=== PATIENT | female | born 1950 | race Caucasian/White ===

== ENCOUNTER 2018-07-13 10:31 | Outpatient (CLI) | payer MEDICARE, OTHER ==
[2018-07-13 17:47] LABS: CHOL/HDL RATIO 3.7 (<4.4); CHOLESTEROL 277 mg/dL; HDL CHOLESTEROL 74 mg/dL; LDL CHOLESTEROL,CALCULATED 189 mg/dL; LDL/HDL RATIO 2.6 (<4.4); VLDL CHOLESTEROL 14 mg/dL
[2018-07-14 15:07] LABS: HEPATITIS C ANTIBODY NON-REACTIVE (NON-REACTIVE)
== END 2018-07-13 10:32 | disposition home or self-care (01) ==
LOC: LAB.F 10:31
PROVIDERS: ATTEND Physician Assistant Medical
DX: Z13.220 Encounter for screening for lipoid disorders (principal); Z13.818 Encounter for screening for other digestive system disorders
CPT/HCPCS: 36415; 80061; 83721; 86803

== ENCOUNTER 2018-07-16 13:20 | Emergency (ER) | payer MEDICARE, OTHER ==
[2018-07-16 13:31] VITALS: BP 156/104
--- NOTE | 2018-07-16 14:44 | ED Physician Documentation ---
PD HPI ANIMAL BITE - Stated complaint Stated Complaint: CAT BITE - Chief complaint Chief Complaint: Wound - History obtained from History obtained from: Patient - History of Present Illness Location of injury(ies): RLE Details of the event: Cat, Not immunized, Provoked, Animal can be observed Timing - onset: Today Timing - duration: Minutes Timing - details: Abrupt onset, Still present Improved by: Rest Worsened by: Moving, Palpating Associated symptoms: No: Weakness, Numbness, Tingling, Swelling Contributing factors: No: Immunocompromised Similar symptoms before: Has not had sx before Recently seen: Not recently seen - Additional information Additional information: 68-year-old previously well female was trying to corner a feral cat today when the cat attacked her and bit her right inner calf. She has puncture wounds consistent with multiple bites and she has no functional deficit. She is up-to-date on her immunizations. The animal can be observed. Review of Systems Constitutional: denies: Fever Ears: denies: Ear pain Nose: denies: Congestion Respiratory: denies: Cough GI: denies: Vomiting, Constipation, Diarrhea : denies: Dysuria Musculoskeletal: reports: Extremity pain Neurologic: denies: Generalized weakness, Focal weakness, Numbness PD PAST MEDICAL HISTORY - Past Medical History Past Medical History: Yes Cardiovascular: None, High cholesterol Respiratory: None Endocrine/Autoimmune: None GI: None, Colon polyps : None HEENT: None Psych: None Musculoskeletal: None Derm: None - Past Surgical History Past Surgical History: Yes General: Colonoscopy HEENT: Tonsil/Adenoidectomy - Present Medications Home Medications: Ambulatory Orders Medication Instructions Recorded Confirmed Amox/Clav 875/125 [Augmentin] 1 each PO Q12H #14 tablet 07/16/18 - Allergies Allergies/Adverse Reactions: Allergies Allergy/AdvReac Type Severity Reaction Status Date / Time No Known Drug Allergies Allergy Verified 07/16/18 13:30 - Social History Does the pt smoke?: No Smoking Status: Never smoker Does the pt drink ETOH?: No Does the pt have substance abuse?: No - Immunizations Immunizations are current?: Yes - POLST Patient has POLST: No PD ED PE NORMAL - Vitals Vital signs reviewed: Yes (hypedrtensive ) - General General: Alert and oriented X 3, No acute distress, Well developed/nourished - HEENT HEENT: Atraumatic, PERRL - Respiratory Respiratory: No respiratory distress - Derm Derm: Normal color, Warm and dry, No rash - Extremities Extremities: No deformity, No edema, Other (There are multiple puncture wounds to the right calf without signs of infection or drainage. Distal n/v is intact. ) - Neuro Neuro: Alert and oriented X 3, natural resources engineer 2-12 intact, No motor deficit, No sensory deficit, Normal speech Eye Opening: Spontaneous Motor: Obeys Commands Verbal: Oriented GCS Score: 15 - Psych Psych: Normal mood, Normal affect Results - Vitals Vitals: Vital Signs - 24 hr 07/16/18 13:25 Temperature 36.9 C Heart Rate 59 L Respiratory 18 Rate Blood Pressure 156/104 H O2 Saturation 99 Oxygen O2 Source Room air PD MEDICAL DECISION MAKING - ED course Complexity details: reviewed old records, considered differential, d/w patient ED course: cat bites to the right calf. - Sepsis Event Vital Signs: Vital Signs - 24 hr 07/16/18 13:25 Temperature 36.9 C Heart Rate 59 L Respiratory 18 Rate Blood Pressure 156/104 H O2 Saturation 99 Oxygen O2 Source Room air Departure - Departure Disposition: 01 Home, Self Care Clinical Impression: Cat bite of left lower leg Qualifiers: Encounter type: initial encounter Qualified Code(s): S81.852A - Open bite, left lower leg, initial encounter Condition: Stable Instructions: ED Bite Cat Follow-Up: Maddy Ngo PA-C [Primary Care Provider] - Prescriptions: Amox/Clav 875/125 [Augmentin] 1 each PO Q12H #14 tablet
== END 2018-07-16 15:02 | disposition home or self-care (01) ==
LOC: ED 13:20
DX: S81.852A Open bite, left lower leg, initial encounter (principal); W55.01XA Bitten by cat, initial encounter; E78.00 Pure hypercholesterolemia, unspecified
CPT/HCPCS: 99283

== ENCOUNTER 2018-07-25 10:14 | Outpatient (CLI) | payer MEDICARE, OTHER ==
--- NOTE | 2018-07-26 09:16 | DEXA Report ---
Reason: ASYMPTOMATIC MENOPAUSAL STATE Procedure Date: 07/25/2018 Accession Number: [id number] / [id number] Procedure: DEX - Dexa Spine and/or Hip CPT Code: FULL RESULT: EXAM: Dexa Spine and/or Hip DATE: 07/25/2018 10:47 AM CLINICAL HISTORY: ASYMPTOMATIC MENOPAUSAL STATE TECHNIQUE: Dual energy x-ray absorptiometry (DXA) was performed on a [employer]ision System. Regions measured are the AP Spine, femoral neck, and if needed forearm. COMPARISON: None. In accordance with the International Society for Clinical Densitometry (ISCD) guidelines, data from previous exams may be reanalyzed using current recommendations and techniques. This is done to allow a more accurate basis for comparison with the current study. FINDINGS: The data for the lumbar spine is as follows: BMD (g/cm/cm) T-SCORE Z-SCORE REGION L1 0.748 -3.2 -1.4 L2 0.816 -3.2 -1.4 L3 0.872 -2.7 -0.9 L4 0.889 -2.6 -0.8 TOTAL 0.843 -2.8 -1.0 NOTE: All evaluable vertebrae are used for classification The data for the hip is as follows: BMD (g/cm/cm) T-SCORE Z-SCORE REGION Neck 0.841 -1.4 0.4 TOTAL 0.939 -0.5 1.0 NOTE: The femoral neck or total proximal femur, whichever is lowest, is used for classification. IMPRESSION: THE WHO CLASSIFICATION BASED ON THE INTERNATIONAL REFERENCE STANDARD IS OSTEOPOROSIS. THE FRACTURE RISK IS HIGH. RECOMMENDATION: Patients with diagnosis of osteoporosis or osteopenia should have regular bone mineral density assessment. For those eligible for Medicare, routine testing is allowed once every 2 years. Testing frequency can be increased for patients who have rapidly progressing disease or for those who are receiving medical therapy to restore bone mass. COMMENT: World Health Organization (WHO) definitions for osteoporosis and osteopenia: NORMAL BMD: T-score at -1.0 or higher, fracture risk is low OSTEOPENIA BMD: T-score between -1.0 and -2.5, fracture risk is increased. OSTEOPOROSIS BMD: T-score at -2.5 or lower, fracture risk is high. National Osteoporosis Foundation recommends: 1. Obtain adequate dietary calcium (at least 1200 mg per day) and vitamin D (400-800 international units per day). 2. Participate, as appropriate, in regular weightbearing and muscle-strengthening exercise. 3. Avoid tobacco use and reduce alcohol and caffeine intake. 4. For more detailed information see the website at www.NOF.org.
== END 2018-07-25 10:15 | disposition home or self-care (01) ==
LOC: DI 10:14
PROVIDERS: ATTEND Physician Assistant Medical
DX: M81.0 Age-related osteoporosis without current pathological fracture (principal)
CPT/HCPCS: 77080

== ENCOUNTER 2019-07-25 13:23 | Outpatient (CLI) | payer MEDICARE, OTHER ==
--- NOTE | 2019-07-27 04:37 | XRAY Report ---
Reason: TOE PAIN LT M79.675 Procedure Date: 07/25/2019 Accession Number: [id number] / [id number] Procedure: XRS - Toe(s) LT CPT Code: FULL RESULT: EXAM: LEFT SECOND AND THIRD TOE RADIOGRAPHY EXAM DATE: 07/25/2019 01:40 PM. CLINICAL HISTORY: TOE PAIN LT M79. 675. COMPARISON: 05/21/2015 1:35 PM. TECHNIQUE: 3 views. FINDINGS: Bones: No acute fracture seen. Joints: No dislocation seen. Degenerative changes in the interphalangeal joints. Soft Tissues: Soft tissue swelling. IMPRESSION: 1. No acute fracture or dislocation seen. 2. Degenerative changes and soft tissue swelling. RADIA
== END 2019-07-25 13:24 | disposition home or self-care (01) ==
LOC: DI.S 13:23
PROVIDERS: ATTEND Family Medicine
DX: M19.072 Primary osteoarthritis, left ankle and foot (principal); R22.42 Localized swelling, mass and lump, left lower limb
CPT/HCPCS: 73660

== ENCOUNTER 2020-10-15 11:23 | Outpatient (CLI) | payer MEDICARE, OTHER | END 2020-10-15 11:24 | disposition home or self-care (01) | LOC: COV 11:23 | PROVIDERS: ATTEND Family Medicine | DX: M79.10 Myalgia, unspecified site (principal); R19.7 Diarrhea, unspecified; R68.83 Chills (without fever); R07.0 Pain in throat; R53.83 Other fatigue; R43.8 Other disturbances of smell and taste; R11.2 Nausea with vomiting, unspecified; Z20.828 Contact with and (suspected) exposure to other viral communicable diseases ==

== ENCOUNTER 2020-10-16 10:56 | Emergency (ER) | payer MEDICARE, OTHER ==
--- NOTE | 2020-10-16 11:38 | ED Physician Documentation ---
PD HPI ABD PAIN - Stated complaint Stated Complaint: STOMACH PX - Chief complaint Chief Complaint: Abd Pain - History obtained from History obtained from: Patient - History of Present Illness Timing - onset: How many days ago (4) Timing - duration: Days (4) Timing - details: Abrupt onset, Still present, Constant Quality: Aching, Sharp, Pain Location: LLQ Radiation: Left flank Improved by: No: Eating, BM Worsened by: No: Eating Associated symptoms: Nausea, Constipation (mild last week, but has had good BMs the past couple days without improvement in the pain.). No: Fever, Vomiting, Diarrhea Similar symptoms before: Has not had sx before Recently seen: Not recently seen Review of Systems Constitutional: denies: Fever, Chills Nose: denies: Rhinorrhea / runny nose, Congestion Throat: denies: Sore throat Cardiac: denies: Chest pain / pressure, Palpitations Respiratory: denies: Cough GI: reports: Abdominal Pain, Nausea, Constipation. denies: Abdominal Swelling, Vomiting, Diarrhea, Hematemesis : denies: Dysuria Skin: denies: Rash Musculoskeletal: reports: Back pain. denies: Neck pain Neurologic: denies: Generalized weakness, Near syncope PD PAST MEDICAL HISTORY - Past Medical History Cardiovascular: None, High cholesterol Respiratory: None Endocrine/Autoimmune: None GI: None, Colon polyps : None HEENT: None Psych: None Musculoskeletal: None Derm: None - Past Surgical History Past Surgical History: Yes General: Colonoscopy HEENT: Tonsil/Adenoidectomy - Present Medications Home Medications: Ambulatory Orders Medication Instructions Recorded Confirmed Docusate Sodium 100Mg Capsule 100 mg PO DAILY #15 capsule 10/16/20 [Colace 100Mg Capsule] HYDROcod/ACETAM 5/325 [[place] 5/325] 1 ea PO Q6H PRN #15 tablet 10/16/20 Ondansetron Odt [Zofran] 4 mg TL Q6H PRN #10 tablet 10/16/20 - Allergies Allergies/Adverse Reactions: Allergies Allergy/AdvReac Type Severity Reaction Status Date / Time No Known Drug Allergies Allergy Verified 10/16/20 11:08 - Social History Does the pt smoke?: No Smoking Status: Never smoker Does the pt drink ETOH?: No Does the pt have substance abuse?: No - Immunizations Immunizations are current?: Yes - POLST Patient has POLST: No PD ED PE NORMAL - Vitals Vital signs reviewed: Yes - General General: Alert and oriented X 3, Well developed/nourished - HEENT HEENT: Pharynx benign - Neck Neck: Supple, no meningeal sign, No adenopathy - Cardiac Cardiac: RRR, No murmur - Respiratory Respiratory: Clear bilaterally - Abdomen Abdomen: Normal bowel sounds, Soft, Non distended, No organomegaly, Other (minimally tender locally LLQ without percussion nor rebound tenderness. Mild left CVA tender. ) - Female Female : Deferred - Rectal Rectal: Deferred - Back Back: No spinal TTP - Derm Derm: Normal color, Warm and dry, No rash - Extremities Extremities: No tenderness to palpate, Normal ROM s pain, No edema, No calf tenderness / cord - Neuro Neuro: Alert and oriented X 3, No motor deficit, Normal speech Results - Vitals Vitals: Vital Signs - 24 hr 10/16/20 10/16/20 11:04 14:15 Temperature 36.5 C Heart Rate 75 80 Respiratory 17 18 Rate Blood Pressure 181/82 H 155/83 H O2 Saturation 98 100 Oxygen O2 Source Room air - Labs Labs: Laboratory Tests 10/16/20 10/16/20 10/16/20 11:30 11:35 11:35 WBC 3.7 L RBC 5.13 Hgb 14.8 Hct 45.3 MCV 88.3 MCH 28.8 MCHC 32.7 RDW 11.9 L Plt Count 162 MPV 10.6 Neut # (Auto) 2.1 Lymph # (Auto) 1.3 L [place] # (Auto) 0.3 Eos # (Auto) 0.1 Baso # (Auto) 0.0 Absolute Nucleated RBC 0.00 Nucleated RBC % 0.0 Sodium 142 Potassium 3.8 Chloride 101 Carbon Dioxide 30 Anion Gap 11.0 BUN 19 Creatinine 0.9 Estimated GFR (MDRD) 62 L Glucose 93 Calcium 9.5 Total Bilirubin 0.8 AST 28 ALT 31 Alkaline Phosphatase 47 Total Protein 7.4 Albumin 4.6 Globulin 2.8 Albumin/Globulin Ratio 1.6 Lipase 45 Urine Color LT RED Urine Clarity CLEAR Urine pH 7.5 Ur Specific [place] 1.010 Urine Protein NEGATIVE Urine Glucose (UA) NEGATIVE Urine Ketones NEGATIVE Urine Occult Blood NEGATIVE Urine Nitrite NEGATIVE Urine Bilirubin NEGATIVE Urine Urobilinogen 0.2 (NORMAL) Ur Leukocyte Esterase NEGATIVE Urine RBC 0-5 Urine WBC 0-3 Ur Squamous Epith Cells RARE Squamous Urine Bacteria Rare Ur Microscopic Review INDICATED Urine Culture Comments NOT INDICATED - Rads (name of study) abd/pelvic CT Radiology: Prelim report reviewed (no acute process), EMP read contemporaneously (Kidney normal. I read a small 3 mm stone at distal ureter (versus small fecolith, but would correlate with her symptoms well). ), See rad report PD MEDICAL DECISION MAKING - ED course Complexity details: reviewed results, considered differential (consider colon irritation, diverticular without infection, though her symptoms seem very c/w kidney stone. Treatment would be similar with NSAIDs, pain meds, and time, with addition of stool softener for possible colitis process. ), d/w patient Departure - Departure Disposition: 01 Home, Self Care Clinical Impression: Left lower quadrant abdominal pain Condition: Stable Record reviewed to determine appropriate education?: Yes Instructions: ED Abdominal Pain Unkn Cause Prescriptions: Docusate Sodium 100Mg Capsule [Colace 100Mg Capsule] 100 mg PO DAILY #15 capsule HYDROcod/ACETAM 5/325 [[place] 5/325] 1 ea PO Q6H PRN #15 tablet PRN Reason: Pain Ondansetron Odt [Zofran] 4 mg TL Q6H PRN #10 tablet PRN Reason: Nausea / Vomiting Comments: The radiology report does not identify an obvious cause for the pain. I thought there might be a small stone in the end of the ureter almost to the bladder but was not on the radiology report. At this point consider the possibilities of most likely an irritation of the portion of intestine down in that area (could be a mild diverticulitis without infection that would not be visible on the CT scan). Or possibly could be a small stone in the ureter not picked up by the radiologist on his view of it. The treatments would be fairly similar at this point with staying well-hydrated and using a stool softener once or twice daily over the next several days to a week. Add to that anti-inflammatory such as Advil/ibuprofen 400 mg 3 times a day with food. Add ondansetron if needed for nausea and hydrocodone if needed for worse pain. Recheck if not improved well and resolved over the next 2 to 5 days. And return if worsening. Discharge Date/Time: 10/16/20 14:15
[2020-10-16 11:49] LABS: BASOPHILS % (AUTO) 0.3 %; EOSINOPHILS # (AUTO) 0.1 10^3/uL (0.0-0.7); EOSINOPHILS % (AUTO) 1.9 %; HGB - HEMOGLOBIN 14.8 g/dL (12.0-16.0); LYMPHOCYTES # (AUTO) 1.3 10^3/uL (1.5-3.5); LYMPHOCYTES % (AUTO) 34.9 %; MEAN CORPUSCULAR HEMOGLOBIN 28.8 pg (27.0-31.0); MEAN CORPUSCULAR HGB CONC 32.7 g/dL (32.0-36.0); MEAN CORPUSCULAR VOLUME 88.3 fL (81.0-99.0); MEAN PLATELET VOLUME 10.6 fL (7.9-10.8); MONOCYTES # (AUTO) 0.3 10^3/uL (0.0-1.0); MONOCYTES % (AUTO) 6.8 %; NEUTROPHILS # (AUTO) 2.1 10^3/uL (1.5-6.6); NEUTROPHILS % (AUTO) 56.1 %; PLT - PLATELET COUNT 162 10^3/uL (130-450); RED BLOOD COUNT 5.13 10^6/uL (4.20-5.40); RED CELL DISTRIBUTION WIDTH 11.9 % (12.0-15.0); WHITE BLOOD COUNT 3.7 x10^3/uL (4.8-10.8)
[2020-10-16 11:50] LABS: BILIRUBIN,URINE NEGATIVE (NEGATIVE); GLUCOSE, URINE (UA) NEGATIVE (NEGATIVE); KETONES,URINE (UA) NEGATIVE (NEGATIVE); LEUKOCYTE ESTERASE, URINE NEGATIVE (NEGATIVE); NITRITE,URINE NEGATIVE (NEGATIVE); OCCULT BLOOD,URINE NEGATIVE (NEGATIVE); PH,URINE 7.5 PH (5.0-7.5); PROTEIN,URINE NEGATIVE (NEGATIVE); UROBILINOGEN,URINE 0.2 (NORMAL) E.U./dL (NORMAL)
[2020-10-16 11:52] LABS: CLARITY,URINE CLEAR (CLEAR)
[2020-10-16 12:01] LABS: BACTERIA,URINE Rare /HPF (None Seen); RBC,URINE 0-5 /HPF (0-5); SQUAMOUS EPITHELIAL CELL,UR RARE Squamous (<= Few)
[2020-10-16] MEDS ORDERED: SODIUM CHLORIDE 0.9% 1,000 ML IV STA (12:01)
[2020-10-16] MEDS ORDERED: MORPHINE 2 MG/ML CARPUJECT IVP STA (12:01)
[2020-10-16] MEDS ORDERED: KETOROLAC 30 MG/ML VIAL IVP STA (12:01)
[2020-10-16 12:02] LABS: ALBUMIN 4.6 g/dL (3.2-5.5); ALBUMIN/GLOBULIN RATIO 1.6 (1.0-2.2); BILIRUBIN,TOTAL 0.8 mg/dL (0.2-1.0); CALCIUM 9.5 mg/dL (8.5-10.3); CREATININE 0.9 mg/dL (0.4-1.0); TOTAL PROTEIN 7.4 g/dL (6.7-8.2)
[2020-10-16] MEDS ORDERED: IOVERSOL 320 100 ML VIAL IVP ONE ×2 (12:24→12:59)
--- NOTE | 2020-10-16 12:54 | CT Report ---
PROCEDURE: Abdomen/Pelvis W INDICATIONS: LLQ abd pain for 4 days CONTRAST: IV CONTRAST: Optiray 320 ml: 100 PO CONTRAST: *NO PO CONTRAST TECHNIQUE: After the administration of IV contrast, 5 mm thick sections acquired from the diaphragms to the symp hysis. 5 mm thick coronal and sagittal reformats were acquired. For radiation dose reduction, the f ollowing was used: automated exposure control, adjustment of mA and/or kV according to patient size. COMPARISON: None. FINDINGS: Image quality: Excellent. ABDOMEN: Lung bases: Linear scarring/atelectasis in the anterior aspect of left lingular segment is seen. Bila teral posterior dependent atelectasis in lung bases also seen. Heart size is normal. Solid organs: Liver and spleen are normal in size and enhancement. Gallbladder is within normal hadley its Biliary system is non dilated. Pancreas enhances normally. No adrenal nodules. Kidneys demons trate normal size and enhancement, without hydronephrosis. Peritoneum and bowel: Bowel loops demonstrate normal wall thickness and caliber. No free fluid or a ir. Significant fecal stasis throughout the colon is seen. There is a small hiatal hernia. Colonic d iverticulosis is noted, no CT evidence of acute diverticulitis. Appendix is visualized in right abdom en and is within normal limits. Nodes and vessels: No retroperitoneal or mesenteric adenopathy by si ze criteria. Aorta and inferior vena cava are normal in size. Miscellaneous: No ventral hernias. PELVIS: Genitourinary: Bladder wall thickness is normal. Miscellaneous: No inguinal hernias or adenopathy. Bones: No suspicious bony lesions. No vertebral body compression fractures. Minimal anterolisthesi s of L4 on L5 is seen. IMPRESSION: 1. Colonic diverticulosis, no CT evidence of acute diverticulitis. Normal appendix. No bowel obstruct ion. No free fluid or free air. Moderate fecal stasis throughout the colon suggestive of constipation . 2. No obstructing renal stone or hydronephrosis. 3. Bibasilar dependent atelectasis/scarring. Reviewed by: James Kim MD on 10/16/2020 12:52 PM PST Approved by: James Kim MD on 10/16/2020 12:52 PM PST Station ID: [id number]
[2020-10-16 14:16] VITALS: BP 155/83
== END 2020-10-16 14:15 | disposition home or self-care (01) ==
LOC: ED 10:56
DX: R10.32 Left lower quadrant pain (principal); N20.1 Calculus of ureter; K57.30 Diverticulosis of large intestine without perforation or abscess without bleeding; Z86.010 Personal history of colon polyps
CPT/HCPCS: 36415; 74177; 80053; 81001; 83690; 85025; 96374; 99284; Q9967; 81003; 87086

== ENCOUNTER 2022-11-26 22:19 | Emergency (ER) | payer MEDICARE, OTHER ==
[2022-11-26 22:57] LABS: BASOPHILS % (AUTO) 0.3 %; EOSINOPHILS # (AUTO) 0.1 10^3/uL (0.0-0.7); HCT - HEMATOCRIT 39.7 % (37.0-47.0); HGB - HEMOGLOBIN 13.2 g/dL (12.0-16.0); LYMPHOCYTES # (AUTO) 1.5 10^3/uL (1.5-3.5); LYMPHOCYTES % (AUTO) 42.8 %; MEAN CORPUSCULAR HEMOGLOBIN 29.2 pg (27.0-31.0); MEAN CORPUSCULAR HGB CONC 33.2 g/dL (32.0-36.0); MEAN CORPUSCULAR VOLUME 87.8 fL (81.0-99.0); MEAN PLATELET VOLUME 11.3 fL (7.9-10.8); MONOCYTES # (AUTO) 0.3 10^3/uL (0.0-1.0); MONOCYTES % (AUTO) 9.1 %; NEUTROPHILS # (AUTO) 1.6 10^3/uL (1.5-6.6); NEUTROPHILS % (AUTO) 45.5 %; PLT - PLATELET COUNT 144 10^3/uL (130-450); RED BLOOD COUNT 4.52 10^6/uL (4.20-5.40); RED CELL DISTRIBUTION WIDTH 12.2 % (12.0-15.0); WHITE BLOOD COUNT 3.5 x10^3/uL (4.8-10.8)
[2022-11-26 23:08] LABS: ALBUMIN 4.2 g/dL (3.2-5.5); ALBUMIN/GLOBULIN RATIO 1.8 (1.0-2.2); BILIRUBIN,TOTAL 0.7 mg/dL (0.2-1.0); CALCIUM 9.5 mg/dL (8.5-10.3); CREATININE 0.9 mg/dL (0.4-1.0); POTASSIUM 4.3 mmol/L (3.5-5.0); TOTAL PROTEIN 6.6 g/dL (6.7-8.2)
--- NOTE | 2022-11-26 23:53 | XRAY Report ---
PROCEDURE: Chest 1 View X-Ray INDICATIONS: Chest pain TECHNIQUE: One view of the chest was acquired. COMPARISON: None. FINDINGS: Surgical changes and devices: None. Lungs and pleura: No pleural effusions or pneumothorax. Lungs are clear. There is hyperinflation of the lungs with flattening of the hemidiaphragms compatible with COPD. Mediastinum: Mediastinal contours appear normal. Heart size is normal. Bones and chest wall: No suspicious bony lesions. Overlying soft tissues appear unremarkable. IMPRESSION: 1. No acute cardiopulmonary disease. 2. Findings compatible with COPD. Reviewed by: Kar Leon MD on 11/27/2022 12:02 AM [facility] Approved by: Kar Leon MD on 11/27/2022 12:02 AM PST Station ID: [id number]
--- NOTE | 2022-11-27 00:12 | ED Physician Documentation ---
History of Present Illness - Stated complaint Stated Complaint: DIZZINESS, HBP, SHAKEY, WEAK - Chief complaint Chief Complaint: General - History obtained from History obtained from: Patient - Additonal information Additional information: Patient c/o high blood pressure readings with home BP cuff. Patient has been having readings at home over past 2-3 days of 170s-200s SBP. She says she was told her blood pressure was elevated by PMD approximately 1 year ago and, at that time, she was instructed to measure BP at home once per week and follow up with PMD. PD PAST MEDICAL HISTORY - Past Medical History Past Medical History: No Cardiovascular: None, High cholesterol Respiratory: None Endocrine/Autoimmune: None GI: None, Colon polyps : None HEENT: None Psych: None Musculoskeletal: None Derm: None - Past Surgical History Past Surgical History: Yes General: Colonoscopy HEENT: Tonsil/Adenoidectomy - Present Medications Home Medications: Ambulatory Orders Medication Instructions Recorded Confirmed Docusate Sodium 100Mg Capsule 100 mg PO DAILY #15 capsule 10/16/20 [Colace 100Mg Capsule] HYDROcod/ACETAM 5/325 [[place] 5/325] 1 ea PO Q6H PRN #15 tablet 10/16/20 Ondansetron Odt [Zofran] 4 mg TL Q6H PRN #10 tablet 20 lisinopriL [Lisinopril] 10 mg PO DAILY #60 tablet 11/27/22 - Allergies Allergies/Adverse Reactions: Allergies Allergy/AdvReac Type Severity Reaction Status Date / Time No Known Drug Allergies Allergy Verified 11/26/22 22:33 - Social History Does the pt smoke?: No Smoking Status: Never smoker Does the pt drink ETOH?: No Does the pt have substance abuse?: No - Immunizations Immunizations are current?: Yes - POLST Patient has POLST: No PD ED PE NORMAL - Vitals Vital signs reviewed: Yes - General General: Alert and oriented X 3, No acute distress, Well developed/nourished - Cardiac Cardiac: RRR, No murmur, No gallop, No rub - Respiratory Respiratory: No respiratory distress, Clear bilaterally Results - Vitals Vitals: Oxygen O2 Source Room air - EKG (time done) No standard instances Rate: Rate (enter#) (63) Rhythm: NSR [place]: Normal Intervals: Normal SC QRS: Normal Ischemia: Normal ST segments - Labs Labs: Laboratory Tests 11/26/22 11/26/22 11/26/22 22:49 22:49 22:49 WBC 3.5 L RBC 4.52 Hgb 13.2 Hct 39.7 MCV 87.8 MCH 29.2 MCHC 33.2 RDW 12.2 Plt Count 144 MPV 11.3 H Neut # (Auto) 1.6 Lymph # (Auto) 1.5 [place] # (Auto) 0.3 Eos # (Auto) 0.1 Baso # (Auto) 0.0 Absolute Nucleated RBC 0.00 Nucleated RBC % 0.0 Sodium 140 Potassium 4.3 Chloride 101 Carbon Dioxide 28 Anion Gap 11.0 BUN 17 Creatinine 0.9 Estimated GFR (MDRD) 61 L Glucose 101 H Calcium 9.5 Total Bilirubin 0.7 AST 27 ALT 27 Alkaline Phosphatase 44 Troponin I High Sens 8.1 Total Protein 6.6 L Albumin 4.2 Globulin 2.4 Albumin/Globulin Ratio 1.8 Lipase 45 PD Medical Decision Making - ED course Complexity details: considered differential, d/w patient ED course: patient has had high blood pressure readings at home for past few days. She says she also was told her blood pressure readings were high at a recent appointment with her jet inspector. She has had occasional palpitations and episodic lightheadedness; as this calls into question whether she is having truly asymptomatic hypertension , a cardiac-oriented workup is performed tonight and there are no concerning findings on EKG, CXR, blood tests including high sensitivity troponin. Her blood pressure readings are elevated during ED stay. Test results reviewed with patient and return precautions discussed. She is interested in starting an anti-hypertensive medication and she is given 10mg lisinopril and rx for same provided. Departure - Departure Disposition: Home, Self Care Clinical Impression: Hypertension Qualifiers: Hypertension type: unspecified Qualified Code(s): I10 - Essential (primary) hypertension Condition: Good Instructions: Lisinopril tablets, ED Hypertension New Begin Tx Prescriptions: lisinopriL [Lisinopril] 10 mg PO DAILY #60 tablet Comments: There were no concerning or diagnostic findings on the tests that were performed tonight. As we discussed, your white blood cell count is slightly below the normal range; you have indicated to me that this is not a new finding. Your kidney function tests are normal, and a cardiac enzyme (blood) test was normal, as well. There were no concerning findings on the EKG, and the chest x-ray did not have any abnormalities. Your blood pressures were indeed persistently elevated during the ER stay, and you have indicated that they have been similarly high (at times even higher than the readings in the ER) at home for the past 2 or more days. Thus, I am starting you on a medication to reduce your blood pressure; you are given the first dose of lisinopril in the emergency department, and I have electronically submitted a prescription for the lisinopril to the [facility] pharmacy in [facility]. Contact your primary care provider in the morning to see if a follow-up appointment can be arranged sooner than the appointment you have scheduled for January. Discharge Date/Time: 11/27/22 00:59
[2022-11-27] MEDS ORDERED: lisinopriL 5 MG TABLET PO STA (00:49)
[2022-11-27 01:01] VITALS: BP 180/88
== END 2022-11-27 00:59 | disposition home or self-care (01) ==
LOC: ED 22:19
DX: I10 Essential (primary) hypertension (principal)
CPT/HCPCS: 36415; 71045; 80053; 83690; 84484; 85025; 93005; 99284; A9270

== ENCOUNTER 2022-11-29 10:45 | Emergency (ER) | payer MEDICARE, OTHER ==
[2022-11-29 11:11] VITALS: BP 182/86
[2022-11-29 11:16] LABS: BASOPHILS % (AUTO) 0.3 %; HCT - HEMATOCRIT 41.6 % (37.0-47.0); HGB - HEMOGLOBIN 13.5 g/dL (12.0-16.0); LYMPHOCYTES % (AUTO) 25.8 %; MEAN CORPUSCULAR HEMOGLOBIN 28.6 pg (27.0-31.0); MEAN CORPUSCULAR HGB CONC 32.5 g/dL (32.0-36.0); MEAN CORPUSCULAR VOLUME 88.1 fL (81.0-99.0); MEAN PLATELET VOLUME 11.2 fL (7.9-10.8); MONOCYTES # (AUTO) 0.3 10^3/uL (0.0-1.0); MONOCYTES % (AUTO) 7.8 %; NEUTROPHILS # (AUTO) 2.5 10^3/uL (1.5-6.6); NEUTROPHILS % (AUTO) 65.1 %; PLT - PLATELET COUNT 134 10^3/uL (130-450); RED BLOOD COUNT 4.72 10^6/uL (4.20-5.40); WHITE BLOOD COUNT 3.9 x10^3/uL (4.8-10.8)
[2022-11-29 11:31] LABS: ALBUMIN 4.1 g/dL (3.2-5.5); ALBUMIN/GLOBULIN RATIO 1.5 (1.0-2.2); BILIRUBIN,TOTAL 0.8 mg/dL (0.2-1.0); CALCIUM 9.2 mg/dL (8.5-10.3); CREATININE 0.9 mg/dL (0.4-1.0); POTASSIUM 4.2 mmol/L (3.5-5.0); TOTAL PROTEIN 6.8 g/dL (6.7-8.2)
[2022-11-29 11:33] LABS: BILIRUBIN,URINE NEGATIVE (NEGATIVE); GLUCOSE, URINE (UA) NEGATIVE (NEGATIVE); KETONES,URINE (UA) NEGATIVE (NEGATIVE); LEUKOCYTE ESTERASE, URINE NEGATIVE (NEGATIVE); NITRITE,URINE NEGATIVE (NEGATIVE); OCCULT BLOOD,URINE NEGATIVE (NEGATIVE); PROTEIN,URINE NEGATIVE (NEGATIVE); UROBILINOGEN,URINE 0.2 (NORMAL) E.U./dL (NORMAL)
[2022-11-29 11:38] LABS: CLARITY,URINE CLEAR (CLEAR)
--- NOTE | 2022-11-29 11:47 | ED Physician Documentation ---
History of Present Illness - Stated complaint Stated Complaint: HIGH BP - Chief complaint Chief Complaint: Cardiac - Additonal information Additional information: 72-year-old female presents emergency department for evaluation of elevated bl ood pressures. Seen by my colleague for similar on 26 November. At that time work-up was negative and presumed to have primary essential hypertension for which she was started on lisinopril. She is taking this twice now but continues to feel that her blood pressures are too elevated. Up to 211 systolic at home. She does report feeling anxious sometimes lightheaded or dizzy. In no way does she describe chest pain or chest pressure. No back pain. No nausea or vomiting. Denies any shortness of air. She has never been treated for hypertension prior to this. Non-smoker and nondrinker. She is scheduled to see a primary care provider at the [facility] on the of this month. Patient is a reliable historian Review of Systems Constitutional: denies: Fever, Chills Ears: reports: Reviewed and negative Throat: reports: Reviewed and negative Cardiac: reports: Other (Lightheaded) Respiratory: reports: Reviewed and negative GI: reports: Reviewed and negative : reports: Reviewed and negative Skin: reports: Reviewed and negative Musculoskeletal: reports: Reviewed and negative Neurologic: denies: Generalized weakness, Focal weakness, Confused, Headache, Head injury, LOC PD PAST MEDICAL HISTORY - Past Medical History Past Medical History: Yes Cardiovascular: Hypertension, High cholesterol Respiratory: None Neuro: None Endocrine/Autoimmune: None GI: Colon polyps : None HEENT: None Psych: None Musculoskeletal: Osteoporosis Derm: None - Past Surgical History Past Surgical History: Yes General: Colonoscopy HEENT: Tonsil/Adenoidectomy - Present Medications Home Medications: Ambulatory Orders Medication Instructions Recorded Confirmed lisinopriL [Lisinopril] 10 mg PO DAILY #60 tablet 11/27/22 11/29/22 - Allergies Allergies/Adverse Reactions: Allergies Allergy/AdvReac Type Severity Reaction Status Date / Time No Known Drug Allergies Allergy Verified 11/29/22 10:56 - Social History Does the pt smoke?: No Smoking Status: Never smoker Does the pt drink ETOH?: No Does the pt have substance abuse?: No - Immunizations Immunizations are current?: Yes - POLST Patient has POLST: No PD ED PE NORMAL - General General: Alert and oriented X 3, No acute distress - HEENT HEENT: Atraumatic, Ears normal - Neck Neck: Supple, no meningeal sign, No adenopathy - Cardiac Cardiac: RRR, No murmur, No gallop, Strong equal pulses - Respiratory Respiratory: No respiratory distress, Clear bilaterally - Abdomen Abdomen: Normal bowel sounds, Soft, Non tender Results - Vitals Vitals: Vital Signs - 24 hr 11/29/22 11/29/22 10:50 11:11 Temperature 36.6 C Heart Rate 64 62 Respiratory 18 16 Rate Blood Pressure 198/84 H 182/86 H O2 Saturation 98 99 Oxygen O2 Source Room air - EKG (time done) 1056 Rate: Rate (enter#) (60) Rhythm: NSR [place]: Normal Intervals: Normal MO QRS: Normal Ischemia: Normal ST segments Compare to prior EKG: Old EKG unavailable Computer interpretation: Agree with computer - Labs Labs: Laboratory Tests 11/29/22 11/29/22 11/29/22 11:07 11:07 11:07 WBC 3.9 L RBC 4.72 Hgb 13.5 Hct 41.6 MCV 88.1 MCH 28.6 MCHC 32.5 RDW 12.0 Plt Count 134 MPV 11.2 H Neut # (Auto) 2.5 Lymph # (Auto) 1.0 L Brown # (Auto) 0.3 Eos # (Auto) 0.0 Baso # (Auto) 0.0 Absolute Nucleated RBC 0.00 Nucleated RBC % 0.0 Sodium 137 Potassium 4.2 Chloride 101 Carbon Dioxide 29 Anion Gap 7.0 BUN 14 Creatinine 0.9 Estimated GFR (MDRD) 61 L Glucose 92 Calcium 9.2 Total Bilirubin 0.8 AST 27 ALT 23 Alkaline Phosphatase 42 Troponin I High Sens 7.4 Total Protein 6.8 Albumin 4.1 Globulin 2.7 Albumin/Globulin Ratio 1.5 Lipase 39 Urine Color Urine Clarity Urine pH Ur Specific [place] Urine Protein Urine Glucose (UA) Urine Ketones Urine Occult Blood Urine Nitrite Urine Bilirubin Urine Urobilinogen Ur Leukocyte Esterase Ur Microscopic Review Urine Culture Comments 11/29/22 11:22 WBC RBC Hgb Hct MCV MCH MCHC RDW Plt Count MPV Neut # (Auto) Lymph # (Auto) Brown # (Auto) Eos # (Auto) Baso # (Auto) Absolute Nucleated RBC Nucleated RBC % Sodium Potassium Chloride Carbon Dioxide Anion Gap BUN Creatinine Estimated GFR (MDRD) Glucose Calcium Total Bilirubin AST ALT Alkaline Phosphatase Troponin I High Sens Total Protein Albumin Globulin Albumin/Globulin Ratio Lipase Urine Color YELLOW Urine Clarity CLEAR Urine pH 7.0 Ur Specific [place] 1.010 Urine Protein NEGATIVE Urine Glucose (UA) NEGATIVE Urine Ketones NEGATIVE Urine Occult Blood NEGATIVE Urine Nitrite NEGATIVE Urine Bilirubin NEGATIVE Urine Urobilinogen 0.2 (NORMAL) Ur Leukocyte Esterase NEGATIVE Ur Microscopic Review NOT INDICATED Urine Culture Comments NOT INDICATED - Rads (name of study) cxr Radiology: EMP read indepedently (No acute cardiopulmonary process) PD Medical Decision Making - ED course Complexity details: reviewed results, re-evaluated patient, considered differential, d/w patient, d/w family ED course: Well-appearing 72-year-old female presents emergency department for reevaluation of her blood pressures. Seen 3 nights ago for similar and started on lisinopril presumptively for essential hypertension. She states that she is anxious and somewhat lightheaded and dizzy. When she has checked her blood pressures at home they are about 211 systolic. At no point has she developed chest pain, chest pressure, back pain nausea or vomiting. Has no vision changes. She is currently scheduled to see PCP on the to have her blood pressure addressed in the long-term. Clinically on exam she appears rather well. My interpretation of the EKG is that is nonischemic. High-sensitivity troponin today is negative. Clinically the patient is not presenting with symptoms or laboratory findings consistent with ACS. She has preserved renal and liver function. No headaches nausea vomiting, vision changes or abdominal pain elicited. Clinically this is not consistent with hypertensive urgency or emergency. I discussed with the patient that long-term management of blood pressure typically takes place over the course of a few weeks to few months. I have encouraged her to check her blood pressure once in the morning before taking lisinopril and then about 2 hours after it. We also discussed the usual emergent return precautions for concerns of chest pain, pressure uncontrolled nausea vomiting headaches back pain etc. Patient does leave this emergency department feeling better though she does remain hypertensive. Departure - Departure Disposition: Home, Self Care Clinical Impression: High blood pressure Qualifiers: Hypertension type: primary hypertension Qualified Code(s): I10 - Essential (primary) hypertension Condition: Stable Record reviewed to determine appropriate education?: Yes Comments: Moriah you came to the emergency department today because you have been feeling somewhat lightheaded and dizzy. You been checking your blood pressures at home and they have vacillated between 160 and 211 systolic. You were seen a few nights ago in the emergency department and diagnosed with hypertension and started on lisinopril. The most important keenan point to the management of high blood pressure is to take the medications consistently at the same time every day. The goal of controlling blood pressure is something that occurs gently over a few weeks or even a few months. I encourage you to check your blood pressure once before you take your medicine and then about 2 hours after taking the lisinopril. Keep a journal of these at home. You should be sitting flat-footed in a chair for 5 minutes with your arm at the level of your heart when checking your blood pressure. Here in the emergency department the auscultation of your heart and lungs was normal. No murmur was heard. The chest x-ray shows no worrisome findings such as pneumonia, pleural effusion, cardiac enlargement or broken ribs. We did obtain a CBC electrolytes and troponin today in the ER. There is no worrisome anemia, or electrolyte abnormalities. Your kidney and liver function is normal. Your troponin is normal meaning you are not having a heart attack. As we discussed at the bedside clinically you do not appear to be having hypertensive emergency or urgency. I encourage you to discuss this ED visit with your primary doctor closely. Reasons to return to the emergency department would be the development of high blood pressures associated with double vision, uncontrolled nausea or vomiting, chest pain, severe shortness of air, or any syncope.
--- NOTE | 2022-11-29 12:05 | XRAY Report ---
PROCEDURE: Chest 1 View X-Ray INDICATIONS: Chest Pain TECHNIQUE: One view of the chest was acquired. COMPARISON: 11/26/2022. FINDINGS: Surgical changes and devices: None. Lungs and pleura: No pleural effusions or pneumothorax. Lungs are clear. Mediastinum: Mediastinal contours appear normal. Heart size is normal. Bones and chest wall: No suspicious bony lesions. Overlying soft tissues appear unremarkable. IMPRESSION: No acute cardiopulmonary pathology. Reviewed by: James Kim MD on 11/29/2022 12:04 PM [facility] Approved by: James Kim MD on 11/29/2022 12:04 PM [facility] Station ID: [id number]
== END 2022-11-29 12:15 | disposition home or self-care (01) ==
LOC: ED 10:45
DX: I10 Essential (primary) hypertension (principal); E78.00 Pure hypercholesterolemia, unspecified
CPT/HCPCS: 36415; 80053; 81001; 81003; 83690; 84484; 85025; 87086; 93005; 99284